=== PATIENT | male | born 1965 | race Two or more races ===

== ENCOUNTER 2019-04-01 20:32 | Emergency (ER) | payer OTHER ==
[~2019-04-01] VITALS: Ht 182.9 cm; Wt 117.9 kg
--- NOTE | 2019-04-01 21:18 | NUR ---
RONNIE W/ FROM HOME. TO ER BED 9. AAOX4. NO RESP DISTRESS NOTED, BREATHING IS EVEN AND UNLABORED. AMBULATORY. C/O BREATHING PROBLEM. PT REPORTS THAT HE HAVE THIS CHIKING FEELING AND WAKES UP WHILE HE IS SLEEPING. PT ALSO REPORT FLU LIKE SYMPTOMS, SORE THROAT. PT'S REPORTS THAT PT TOOK KEFLEX FOR 1 DAY WHICH WAS PRESCRIDED FOR THE . PT ALSO REPORTS BILAT LEG SWELLING, NOTED MULTIPLE RED SPOTS WHICH APPEARS TO BE INSECT BITES. MD WAS AT BEDSIDE FOR EVAL. AWATING ORDERS.
[2019-04-01] MEDS ORDERED: LABETALOL HCL IV 100MG VIAL ONE (21:39)
[2019-04-01] MEDS ORDERED: LABETALOL 20 MG/4 ML VIAL IV ONE (22:00)
[2019-04-01] MEDS ORDERED: NIFEdipine XL (30MG) 30 MG TAB PO SCH (22:00)
[2019-04-01] MEDS ORDERED: NIFEdipine XL (30MG) 30 MG TAB PO ONE (22:04)
--- NOTE | 2019-04-01 22:31 | NUR ---
PROCARDIA 30MG XL TAKEN FROM ICU. MEDICATION NOT AVAILABLE IN ER OMNICELL
[2019-04-01 23:07] VITALS: BP 148/90
== END 2019-04-01 23:08 | disposition home or self-care (01) ==
LOC: ER 20:32
DX: B34.9 Viral infection, unspecified (principal); L03.116 Cellulitis of left lower limb; L03.115 Cellulitis of right lower limb; I10 Essential (primary) hypertension; F17.210 Nicotine dependence, cigarettes, uncomplicated
CPT/HCPCS: 96374; 99283; J3490 ×2